=== PATIENT | male | born 1955 | race Caucasian/White ===

== ENCOUNTER 2019-07-09 07:10 | Day surgery (SDC) | payer OTHER ==
[2019-07-08 09:31] VITALS: BMI 31.0
[~2019-07-09 07:10] MED LIST: ACETAMINOPHEN 325 MG TABLET (FP) PO PRN; CHONDROITIN SU A/HYALUR SOD 1 KIT IO ONE; LIDOCAINE HCL 1% PRESERVATIVE FREE - 30ML VIAL IO ONE; TETRACAINE 0.5% OPHTH SOLN 2 ML BOTTLE TP ONE; TOBRAMYCIN/DEXAMETHASONE OPHTH. OINTMENT 1 TUBE TP ONE
[2019-07-09] MEDS: TROPICAMIDE 1% OPHTH SOLN 15 ML BOTTLE OP SCH ×3 (07:50→08:20)
[2019-07-09] MEDS: PHENYLEPHRINE 2.5% OPHTH SOLN 15 ML BOTTLE OP SCH ×3 (07:50→08:20)
[2019-07-09] MEDS: CIPROFLOXACIN HCL 0.3% OPHTH 2.5ML BOTTLE OP SCH ×3 (07:50→08:19)
[2019-07-09] MEDS: KETOROLAC TROMETHAMINE 0.5% EYE DROP 1 DROP DROPS OP SCH ×2 (07:50→08:09)
[2019-07-09] MEDS ORDERED: CIPROFLOXACIN HCL 0.3% OPHTH 2.5ML BOTTLE ONE (07:56)
[2019-07-09] MEDS ORDERED: PHENYLEPHRINE 2.5% OPHTH SOLN 15 ML BOTTLE ONE (07:56)
[2019-07-09] MEDS ORDERED: KETOROLAC TROMETHAMINE 0.5% EYE DROP 1 DROP DROPS ONE (07:57)
[2019-07-09] MEDS ORDERED: TROPICAMIDE 1% OPHTH SOLN 15 ML BOTTLE ONE (07:57)
[2019-07-09] MEDS ORDERED: MIDAZOLAM HCL 2 MG/2 ML SINGLE DOSE VIAL ONE (08:55)
--- NOTE | 2019-07-09 08:56 | HP ---
- Patient Scheduled date of Surgery: 07/09/19 Scheduled Surgical Procedure: Phacoemulsification and cataract extraction with PCIOL Affected Eye: Right Chief Complaint (Indication for surgery): Decreased vision affecting ADLs - Ocular History Other Eye History: Other (choroidal nevus, allergic conjunctivitis) Eye Medications: cipro , zaditor Previous Eye Surgery: myopic lasik - Medical History Illnesses: Hypercholesterolemia, Other (gerd, arthiritis) Current Medications: Ambulatory Orders Atorvastatin Ca [Lipitor] 10 mg PO UTDICT 07/08/19 Allergies/Adverse Reactions: Allergies Allergy/AdvReac Type Severity Reaction Status Date / Time No Known Drug Allergies Allergy Verified 07/09/19 07:49 Ocular Examination - Best Corrected Visual Acuity Distance: Right eye: 20/80 (glare) Distance: Left eye: 20/70 (glare) - External/Slit Lamp Examination Abnormalities: decreased TBUT, papillae - Intraocular Pressure Intraocular Pressure - Right eye: 13 Intraocular Pressure-Left eye: 13 - Lens Lens: 2+ NS superior psc - Vitreous/Retina Vitreous/Retina: C:D 0.15 m/v/p wnl - Special Examination M - Right eye: -0.75-1.00 x 090 M - Left eye: -0.25-0.75 x 090 K - Right eye: 41/41.50 100 K - Left eye: 40.75/41 x145 AL - Right eye: 26.15 AL - Left eye: 26.53 IOL bag: +19.0 AUOOTO IOL sulcus: +18.5 [id number] IOL AC: +16.50 MTA4uo - Impression Impression: Cataract Right Eye - Plan Plan: Phacoemulsification and cataract extraction - IOL Right eye
--- NOTE | 2019-07-09 08:57 | HP ---
History & Physical Update - History History: No Change - Physical Physical: No Change - Assessment Assessment: No Change - Plan Plan: No Change (H and p reviewed from 06/25/[address] Crum no changes)
[2019-07-09] MEDS ORDERED: TETRACAINE 0.5% OPHTH SOLN 2 ML BOTTLE TP ONE (09:10)
[2019-07-09] MEDS ORDERED: LIDOCAINE HCL 1% PRESERVATIVE FREE - 30ML VIAL IO ONE (09:13)
[2019-07-09] MEDS ORDERED: CHONDROITIN SU A/HYALUR SOD 1 KIT IO ONE ×2 (09:14)
[2019-07-09] MEDS ORDERED: EPINEPHrine/PF 1 MG/1 ML (1:1,000) AMPULE SQ ONE (09:21)
[2019-07-09] MEDS ORDERED: TOBRAMYCIN/DEXAMETHASONE OPHTH. OINTMENT 1 TUBE TP ONE (09:40)
--- NOTE | 2019-07-09 09:48 | OP ---
Ophthalmology Operative Note Pre-Operative Diagnosis: Cataract (psc) Affected Eye: Right Operation: Phacoemulsification and cataract extraction with PCIOL Findings: PSC cataract right eye Post-Operative Diagnosis: Same as Pre-op Charge Machine Operator: None Anesthesia: Topical Specimens Removed: none Estimated blood loss: < 1 cc Drains & Tubes with Location: none
--- NOTE | 2019-07-09 10:14 | OP ---
DATE OF OPERATION: 07/09/2019 PREOPERATIVE DIAGNOSIS: Posterior subcapsular cataract, right eye. POSTOPERATIVE DIAGNOSIS: Posterior subcapsular cataract, right eye. PROCEDURE: Phacoemulsification and cataract extraction with insertion of posterior chamber intraocular lens, right eye. SURGEON: Layla Brock MD SEWING MACHINE MECHANIC: None. ANESTHESIA: Topical. ANESTHESIOLOGIST: DANIEL Garrido-EDER OPERATIVE PROCEDURE: The patient received Tetracaine eye drops and was gently sedated and prepped and draped in the usual sterile fashion so as to expose only the right eye. Ophthalmic Betadine was instilled into the inferior fornix and lashes were taped out of the surgical field. An eyelid speculum was placed into the right eye. Paracentesis was made in superior temporal clear cornea at the limbus. Then 0.5 mL of nonpreserved lidocaine 1% was injected into the anterior chamber and then 1 mL of dilute epinephrine 1:10,000 was injected into the anterior chamber to improve pupillary dilation. Viscoelastic material was instilled into the anterior chamber via the paracentesis. A 2.4-mm keratome blade was then used to create the main incision in temporal clear cornea at the limbus. A continuous curvilinear capsulorrhexis was performed using a cystotome and Utrata forceps. Hydrodissection of the lens cortex was performed using BSS on a cannula until the nucleus was noted to be freely rotating. The phacoemulsification tip was then inserted via the main wound and used to scope 2 perpendicular grooves into the lens nucleus. The nucleus was cracked into 4 quadrants. Each quadrant was lifted out of the capsule into the iris plane and individually phacoemulsified. The remaining cortical material was then aspirated using the irrigation/aspiration port. The capsular bag was inflated using ProVisc and a preloaded AcrySof lens model [id number] power +19.0 diopters was injected into the capsular bag. It was centered using a Sinskey hook. The residual viscoelastic material was removed from the anterior chamber using irrigation and aspiration. The wound edges were hydrated using BSS. The wound was tested for leakage and was found to be watertight. Tobradex ointment was placed in the eye, and the speculum was removed from the eye, and the eyelid was closed. A sterile dressing and shield were placed over the eye. The patient was transferred to the recovery room in stable condition, told to follow up in 1 day. Eligio [id number]
[2019-07-09 10:17] VITALS: TEMP 98.5
[2019-07-09] MEDS ORDERED: ONDANSETRON 4 MG/2 ML VIAL IVPUSH PRN (10:53)
[2019-07-09] MEDS ORDERED: LACTATED RINGERS SOLUTION 1,000 ML IV SCH (11:00)
[2019-07-09 11:03] VITALS: BP 114/69; PULSE 80
== END 2019-07-09 10:50 | disposition home or self-care (01) ==
LOC: JASU-SURG 07:10
PROVIDERS: ATTEND Ophthalmology
PROC: 08RJ3JZ Replacement of Right Lens with Synthetic Substitute, Percutaneous Approach (ICD-10-PCS; principal; 2019-07-09 08:30)
DX: H26.8 Other specified cataract (principal)

== ENCOUNTER → 2021-06-01 | Emergency (ER) | payer OTHER ==
[2021-06-01 15:22] VITALS: BP 139/73; PULSE 104; TEMP 99.3; BMI 28.8
== END | disposition left against medical advice (07) ==
LOC: JCOVINFU 14:55
DX: U07.1 COVID-19 (principal)
CPT/HCPCS: 99283-25